=== PATIENT | male | born 1985 | race Hispanic/Latino ===

== ENCOUNTER 2018-01-09 07:00 | Day surgery (SDC) | payer MEDICARE, MEDICAID ==
[2018-01-02 09:42] VITALS: BMI 21.2
[2018-01-09 07:20] VITALS: O2SAT 99
[2018-01-09] MEDS ORDERED: Propofol 10 mg/ml Inj (20 ML) ONE ×2 (08:24→08:32)
[2018-01-09] MEDS ORDERED: Lidocaine 1% Inj (20ml) ONE (08:24)
[2018-01-09 08:33] LABS: ALB/GLOB RATIO 1.7 (1.1-1.8); ALBUMIN 4.3 g/dL (3.0-4.8); ALT/SGPT 29 U/L (7-56); AST/SGOT 16 U/L (17-59); BLOOD UREA NITROGEN 19 mg/dL (7-21); CALCIUM 9.1 mg/dL (8.4-10.5); GFR AFRICAN-AMERICAN > 60; GFR NON-AFRICAN AMERICAN > 60
[2018-01-09] MEDS ORDERED: Sodium Chloride 0.9% 1,000 ML IV SCH ×2 (09:00→10:45)
[2018-01-09] MEDS ORDERED: Midazolam 2 MG/2 ML VIAL ONE (09:56)
[2018-01-09 11:35] VITALS: BP 99/58; PULSE 65; RESP 17; TEMP 97.4
--- NOTE | 2018-01-10 11:36 | CT ---
PROCEDURE: CT HEAD WITH CONTRAST HISTORY: DYSPHAGIA COMPARISON: None available. TECHNIQUE: Axial computed tomography images were obtained through the head/brain with intravenous contrast. Contrast dose: Radiation dose: Total exam DLP = mGy-cm. This CT exam was performed using one or more of the following dose reduction techniques: Automated exposure control, adjustment of the mA and/or kV according to patient size, and/or use of iterative reconstruction technique. FINDINGS: HEMORRHAGE: No intracranial hemorrhage. BRAIN: No mass, mass effect or edema. No abnormal intracranial enhancement. No atrophy or chronic microvascular ischemic changes. VENTRICLES: Prominent ventricles with mild asymmetric dilatation of the right posterior horn. CALVARIUM: Unremarkable. PARANASAL SINUSES: Unremarkable as visualized. No significant inflammatory changes. MASTOID AIR CELLS: Unremarkable as visualized. No mastoid effusion. OTHER FINDINGS: None. IMPRESSION: Prominent ventricles with mild asymmetric dilatation of the right posterior horn.
--- NOTE | 2018-01-10 11:40 | CT ---
PROCEDURE: CT Chest, Abdomenwith intravenous contrast HISTORY: DYSPHAGIA COMPARISON: None. TECHNIQUE: IV dose administered: 100 cc of Omnipaque 350 Radiation dose: Total exam DLP = 780 mGy-cm. This CT exam was performed using one or more of the following dose reduction techniques: Automated exposure control, adjustment of the mA and/or kV according to patient size, and/or use of iterative reconstruction technique. FINDINGS: CT CHEST WITH CONTRAST: LUNGS: Clear. No nodule, mass or consolidation. MEDIASTINUM: Unremarkable. Normal caliber aorta and pulmonary arterial trunk. No aortic dissection. Normal size heart. LYMPH NODES: Unremarkable. PLEURA: Unremarkable. No pneumothorax. No pleural fluid. BONES: Unremarkable. OTHER FINDINGS: None. CT ABDOMEN AND PELVIS: LIVER: Unremarkable. No gross lesion or ductal dilatation. GALLBLADDER AND BILE DUCTS: Status post cholecystectomy with slight lobulation of the liver along the gallbladder fossa. PANCREAS: Unremarkable. No gross lesion or ductal dilatation. SPLEEN: Unremarkable. ADRENALS: Unremarkable. No mass. KIDNEYS AND URETERS: Unremarkable. No hydronephrosis. No solid mass. VASCULATURE: Unremarkable. No aortic aneurysm. BOWEL: Unremarkable. No obstruction. No gross mural thickening. APPENDIX: Normal appendix. PERITONEUM: Unremarkable. No free fluid. No free air. LYMPH NODES: Unremarkable. No enlarged lymph nodes. BONES: No acute fracture. OTHER FINDINGS: None. IMPRESSION: Status post cholecystectomy with slight lobulation of the liver along the gallbladder fossa. Unremarkable appearance of the esophagus.
== END 2018-01-09 12:08 | disposition home or self-care (01) ==
LOC: ENDO 07:00
PROVIDERS: ATTEND Internal Medicine Gastroenterology
DX: K25.4 Chronic or unspecified gastric ulcer with hemorrhage (principal); K26.9 Duodenal ulcer, unspecified as acute or chronic, without hemorrhage or perforation; K29.80 Duodenitis without bleeding; K44.9 Diaphragmatic hernia without obstruction or gangrene; K29.50 Unspecified chronic gastritis without bleeding; K21.9 Gastro-esophageal reflux disease without esophagitis
CPT/HCPCS: 36415; 43239; 70460; 71260; 74160; 80053; 88305; 88312; 88342; J2250; J2704; J7030; J7040

== ENCOUNTER 2018-09-23 07:38 | Outpatient (CLI) | payer MEDICARE, MEDICAID | END 2018-09-23 07:39 | disposition home or self-care (01) | LOC: RAD 07:38 ==